=== PATIENT | male | born 2000 | race African-American/Black ===

== ENCOUNTER 2020-09-20 16:41 | Emergency (ER) | payer OTHER ==
[~2020-09-20] VITALS: Ht 193 cm; Wt 95.5 kg
[2020-09-20 16:59] VITALS: TEMP 98.6
[2020-09-20 17:44] VITALS: BP 122/78; PULSE 78
== END 2020-09-20 17:44 | disposition home or self-care (01) ==
LOC: COL.ER 16:41
DX: A74.9 Chlamydial infection, unspecified (principal)
CPT/HCPCS: J0696